=== PATIENT | male | born 1985 ===

== ENCOUNTER 2021-05-24 21:16 | Emergency (ER) | payer MEDICAID ==
[~2021-05-24] VITALS: Ht 182.9 cm; Wt 84.0 kg
[2021-05-24 21:27] VITALS: BP 132/74
[2021-05-24] MEDS ORDERED: IBUPROFEN 400MG TABLET PO ONE (22:45)
[2021-05-24] MEDS ORDERED: ACETAMINOPHEN 325MG TABLET PO ONE (22:45)
[2021-05-24] MEDS ORDERED: CEPH500T MT (22:58)
== END 2021-05-24 23:52 | disposition home or self-care (01) ==
LOC: ER 21:16
DX: M79.641 Pain in right hand (principal); M79.642 Pain in left hand
CPT/HCPCS: 99282; 99283